=== PATIENT | male | born 1980 | race Caucasian/White ===

== ENCOUNTER 2017-01-26 11:30 | Outpatient (CLI) | payer OTHER | END 2017-01-26 12:00 | disposition home or self-care (01) | LOC: RAD 11:30 | PROVIDERS: ATTEND Nurse Practitioner | DX: G47.00 Insomnia, unspecified (principal) ==

== ENCOUNTER 2019-04-02 10:05 | Emergency (ER) | payer OTHER ==
[~2019-04-02] VITALS: Ht 180.3 cm; Wt 159.0 kg
--- NOTE | 2019-04-02 10:25 | ED Respiratory ---
General Stated Complaint: SOA Source: patient Exam Limitations: no limitations History of Present Illness Date Seen by Provider: Apr 02, 2019 Time Seen by Provider: 10:08 Initial Comments The patient reports to the ER from home by ambulance with his and chief complaint that he's having shortness of breath the past few weeks progressively worsening as well as increased swelling and edema in his abdomen and lower extremities. His also noticed today he has icterus which she has never had before. He has a history of hepatitis as well as he still chronically drinks about a fifth of liquor daily. He has a history of cirrhosis but no history of abdominal ascites necessitating drainage. He says he does not feel wheezy and has no history of COPD or asthma but does smoke cigarettes about a pack per day. Allergies and Home Medications Allergies Coded Allergies: No Known Drug Allergies (Unverified , 04/02/19) Patient Home Medication List Home Medication List Reviewed: Yes Review of Systems Review of Systems Constitutional: No chills, No diaphoresis EENTM: No ear discharge, No ear pain Respiratory: No cough, No hemoptysis; orthopnea, short of breath; No stridor, No wheezing Cardiovascular: No chest pain, No Hx of Intervention, No palpitations Gastrointestinal: No abdominal pain, No constipation, No diarrhea, No nausea Genitourinary: No discharge, No dysuria Musculoskeletal: No back pain, No joint pain All Other Systems Reviewed Negative Unless Noted: Yes Past Cnvtzba-Acsxvh-Ssdete Hx Patient Social History Alcohol Use: Regular Use Alcohol Beverage of Choice: Cheap Liquor (1/5 per day) Recreational Drug Use: No Smoking Status: Current Everyday Smoker Type Used: Cigarettes Physical Exam Vital Signs - First Documented 04/02/19 04/02/19 10:08 11:10 Temp 36.2 Pulse 112 Resp 20 B/P (MAP) 170/93 (118) O2 Delivery Nasal Cannula O2 Flow Rate 2.00 Capillary Refill : Height: '" Weight: lbs. oz. kg; BMI Method: General Appearance: moderate distress, obese Eyes: Bilateral Eye Normal Inspection, Bilateral Eye PERRL, Bilateral Eye EOMI HEENT: PERRL/EOMI, normal ENT inspection, TMs normal, pharynx normal Neck: full range of motion, supple, normal inspection Respiratory: lungs clear, respiratory distress (mild to moderate 30-35 respirations per minute), decreased breath sounds, accessory muscle use (mild to moderate) Cardiovascular: normal peripheral pulses, regular rate, rhythm, tachycardia (115) Gastrointestinal: normal bowel sounds, non tender, distended (edematous, tense); No tenderness Neurologic/Psychiatric: alert, normal mood/affect, oriented x 3 Skin: normal color, warm/dry Focused Exam Lactate Level 04/02/19 10:22: Lactic Acid Level 8.02*H 04/02/19 13:00: Lactic Acid Level 6.71*H Lactic Acid Level Laboratory Tests Test 04/02/19 10:22 04/02/19 13:00 Lactic Acid Level 8.02 MMOL/L (0.50-2.00) *H 6.71 MMOL/L (0.50-2.00) *H Progress/Results/Core Measures Suspected Sepsis SIRS Temperature: Pulse: Respiratory Rate: Laboratory Tests 04/02/19 10:20: White Blood Count 7.3 Blood Pressure / Mean: 04/02/19 10:22: Lactic Acid Level 8.02*H 04/02/19 13:00: Lactic Acid Level 6.71*H Laboratory Tests 04/02/19 10:20: Creatinine 2.13H, Platelet Count 98L, Total Bilirubin 9.7H 04/02/19 11:03: INR Comment 1.2 Results/Orders Lab Results Laboratory Tests Test 04/02/19 10:20 04/02/19 10:22 04/02/19 10:26 04/02/19 11:03 Range/Units White Blood Count 7.3 4.3-11.0 10^3/uL Red Blood Count 4.28 L 4.35-5.85 10^6/uL Hemoglobin 11.9 L 13.3-17.7 G/DL Hematocrit 38 L 40-54 % Mean Corpuscular Volume 88 80-99 FL Mean Corpuscular Hemoglobin 28 25-34 PG Mean Corpuscular Hemoglobin Concent 32 32-36 G/DL Red Cell Distribution Width 20.2 H 10.0-14.5 % Platelet Count 98 L 130-400 10^3/uL Mean Platelet Volume 10.7 H 7.4-10.4 FL Neutrophils (%) (Auto) 77 H 42-75 % Lymphocytes (%) (Auto) 13 12-44 % Monocytes (%) (Auto) 9 0-12 % Eosinophils (%) (Auto) 1 0-10 % Basophils (%) (Auto) 0 0-10 % Neutrophils # (Auto) 5.6 1.8-7.8 X 10^3 Lymphocytes # (Auto) 1.0 1.0-4.0 X 10^3 Monocytes # (Auto) 0.7 0.0-1.0 X 10^3 Eosinophils # (Auto) 0.0 0.0-0.3 10^3/uL Basophils # (Auto) 0.0 0.0-0.1 10^3/uL Sodium Level 128 L 135-145 MMOL/L Potassium Level 3.1 L 3.6-5.0 MMOL/L Chloride Level 81 L 98-107 MMOL/L Carbon Dioxide Level 21 21-32 MMOL/L Anion Gap 26 H 5-14 MMOL/L Blood Urea Nitrogen 16 7-18 MG/DL Creatinine 2.13 H 0.60-1.30 MG/DL Estimat Glomerular Filtration Rate 35 BUN/Creatinine Ratio 8 Glucose Level 94 70-105 MG/DL Calcium Level 6.6 L 8.5-10.1 MG/DL Corrected Calcium 7.5 L 8.5-10.1 MG/DL Magnesium Level 0.7 *L 1.6-2.4 MG/DL Total Bilirubin 9.7 H 0.1-1.0 MG/DL Aspartate Amino Transf (AST/SGOT) 152 H 5-34 U/L Alanine Aminotransferase (ALT/SGPT) 122 H 0-55 U/L Alkaline Phosphatase 677 H 40-136 U/L Troponin I 0.066 H <0.028 NG/ML B-Type Natriuretic Peptide 136.3 H <100.0 PG/ML Total Protein 6.1 L 6.4-8.2 GM/DL Albumin 2.9 L 3.2-4.5 GM/DL Lactic Acid Level 8.02 *H 0.50-2.00 MMOL/L Blood Gas Puncture Site L RADIAL Blood Gas Patient Temperature 36.6 Arterial Blood pH 7.49 H 7.37-7.43 Arterial Blood Partial Pressure CO2 32 L 35-45 MMHG Arterial Blood Partial Pressure O2 110 H 79-93 MMHG Arterial Blood HCO3 24 23-27 MMOL/L Arterial Blood Total CO2 25.2 21.0-31.0 MMOL/L Arterial Blood Oxygen Saturation 98 94-100 % Arterial Blood Base Excess 0.9 -2.5-2.5 MMOL/L Christian Test YES-POS Blood Gas Ventilator Setting NO Blood Gas Inspired Oxygen 1.5 Prothrombin Time 16.1 H 12.2-14.7 SEC INR Comment 1.2 0.8-1.4 Activated Partial Thromboplast Time 35 24-35 SEC D-Dimer 3.24 H 0.00-0.49 UG/ML Test 04/02/19 13:00 Range/Units Lactic Acid Level 6.71 *H 0.50-2.00 MMOL/L Micro Results Microbiology 04/02/19 Influenza Types A,B Antigen (EDGAR) - Final, Complete My Orders Orders - CHIP AL Cbc With Automated Diff (04/02/19 10:17) Comprehensive Metabolic Panel (04/02/19 10:17) Blood Culture (04/02/19 10:17) Sputum Culture (04/02/19 10:17) Urinalysis (04/02/19 10:17) Urine Culture (04/02/19 10:17) Protime With Inr (04/02/19 10:17) Partial Thromboplastin Time (04/02/19 10:17) Chest 1 View, Ap/Pa Only (04/02/19 10:17) Ed Iv/Invasive Line Start (04/02/19 10:17) Ed Iv/Invasive Line Start (04/02/19 10:17) Ekg Tracing (04/02/19 10:17) Troponin I (04/02/19 10:17) Vital Signs Adult Sepsis Patie Q15M (04/02/19 10:17) O2 (04/02/19 10:17) Remove Rings In Anticipation O (04/02/19 10:17) Lactic Acid Analyzer (04/02/19 10:17) Influenza A And B Antigens (04/02/19 10:17) Magnesium (04/02/19 10:17) Bipap (Bilevel) Set Up (04/02/19 10:17) BNP (04/02/19 10:25) Fibrin Degradation Products (04/02/19 10:25) Arterial Blood Gas (04/02/19 10:28) Lorazepam Injection (Ativan Injection) (04/02/19 11:00) Arterial Blood Draw (04/02/19 ) Magnesium 1 Gm/100 Ml Ivpb (Magnesium Sam (04/02/19 11:45) Potassium Cl 10meq/50ml Ivpb (Kcl 10 Meq (04/02/19 11:45) Aspirin Chewable Tablet (Baby Aspirin Ch (04/02/19 11:45) Pantoprazole Injection (Protonix Injecti (04/02/19 13:15) Enoxaparin Injection (Lovenox Injection) (04/02/19 14:00) Medications Given in ED Current Medications Medications Dose Ordered Sig/Jesica Route Start Time Stop Time Status Last Admin Dose Admin Aspirin 324 mg ONCE ONCE PO 04/02/19 11:45 04/02/19 11:46 DC 04/02/19 12:05 324 MG Lorazepam 0.25 mg ONCE ONCE IVP 04/02/19 11:00 04/02/19 11:01 DC 04/02/19 10:54 0.25 MG Pantoprazole 40 mg ONCE ONCE IV 04/02/19 13:15 04/02/19 13:16 DC 04/02/19 13:23 40 MG Potassium Chloride 50 ml @ 50 mls/hr ONCE ONCE IV 04/02/19 11:45 04/02/19 12:44 DC 04/02/19 12:10 50 MLS/HR Vital Signs/I&O 04/02/19 04/02/19 10:08 11:10 Temp 36.2 Pulse 112 Resp 20 B/P (MAP) 170/93 (118) O2 Delivery Nasal Cannula O2 Flow Rate 2.00 Capillary Refill : Progress Note : Time: 10:24 Progress Note Suspect he's and hepatorenal syndrome fluid overload. Some labs and if appropriate give him a dose of Lasix. Chest x-ray ABG. ECG Initial ECG Impression Date: Apr 02, 2019 Initial ECG Impression Time: 10:31 Initial ECG Rate: 111 Initial ECG Rhythm: S.Tach Initial ECG Intervals: QT (500) Initial ECG Impression: Normal, Nonspecific Changes Comment Sinus tachycardia with prolonged QT interval and some respiratory artifact but no ST elevation or depression appreciable. Diagnostic Imaging Diagonstic Imaging: Xray Plain Films/CT/US/NM/MRI: chest (1v) Comments [facility]. [place], [place] NAME: DIOGO MTZ MED REC#: [id number] PT STATUS: REG ER : 1980 PHYSICIAN: CHIP AL MD ADMIT DATE: 04/02/19/ER Draft Date of Exam:04/02/19 CHEST 1 VIEW, AP/PA ONLY HISTORY: Swollen leg and abdomen for 2 weeks. Increased shortness of air. COMPARISON: None. TECHNIQUE: Single frontal view of the chest. FINDINGS: The lung volumes are normal. No focal consolidation is seen. There is no pleural effusion or pneumothorax. Tubing overlies the chest. There is an old healed/healing left rib fracture. IMPRESSION: No acute pulmonary abnormality is seen. Dictated on workstation # [id number] Dict: 04/02/19 1216 Trans: 04/02/19 1218 [id number] Interpreted by: VERONICA BEAVER MD Electronically signed by: Reviewed: Reviewed by Me Departure Impression Primary Impression: Acute respiratory failure Qualified Codes: J96.00 - Acute respiratory failure, unspecified whether with hypoxia or hypercapnia Additional Impressions: Acute liver failure Qualified Codes: K72.00 - Acute and subacute hepatic failure without coma Alcohol dependence Qualified Codes: F10.29 - Alcohol dependence with unspecified alcohol- induced disorder Disposition: SHT-TRM HOSP Condition: Stable Transfer Transfer Reason: Exceeds level of care Time Spoke to Accepting Phy: 14:00 Transfer Progress Notes Discussed case with Dr. Briones and he accepts the patient to the ICU at [facility]. He agrees with a single dose of Lovenox. Transfer Facility: [place], [place] Method of Transfer: EMS Departure-Patient Inst. Referrals: CLARA JARQUIN MD (PCP/Family) Primary Care Physician CHIP AL Apr 02, 2019 10:25
[2019-04-02 10:34] LABS: ABG BASE EXCESS 0.9 MMOL/L (-2.5-2.5); ABG OXYGEN SATURATION 98 % (94-100); ABG PCO2 32 MMHG (35-45); ABG PH 7.49 (7.37-7.43); ABG PO2 110 MMHG (79-93); ABG TCO2 25.2 MMOL/L (21.0-31.0)
[2019-04-02 10:36] LABS: ALLENS TEST YES-POS; INSPIRED O2 1.5; PATIENT TEMP 36.6; VENTILATOR NO
[2019-04-02 10:46] LABS: BASOPHILS % (AUTO) 0 % (0-10); EOSINOPHILS % (AUTO) 1 % (0-10); HEMATOCRIT 38 % (40-54); HEMOGLOBIN 11.9 G/DL (13.3-17.7); LYMPHOCYTES % (AUTO) 13 % (12-44); MEAN CORPUSCULAR HEMOGLOBIN 28 PG (25-34); MEAN CORPUSCULAR HGB CONC 32 G/DL (32-36); MEAN CORPUSCULAR VOLUME 88 FL (80-99); MEAN PLATELET VOLUME 10.7 FL (7.4-10.4); MONOCYTES # (AUTO) 0.7 X 10^3 (0.0-1.0); MONOCYTES % (AUTO) 9 % (0-12); NEUTROPHILS # (AUTO) 5.6 X 10^3 (1.8-7.8); NEUTROPHILS % (AUTO) 77 % (42-75); PLATELET COUNT 98 10^3/uL (130-400); RED CELL DISTRIBUTION WIDTH 20.2 % (10.0-14.5); WHITE BLOOD COUNT 7.3 10^3/uL (4.3-11.0)
--- NOTE | 2019-04-02 10:46 | NUR ---
PATIENT UNABLE TO TOLERATED BI PAP PLACED ON VIPROTHERM BY RT.
[2019-04-02] MEDS ORDERED: LORazepam INJ 2 MG/ML (ATIVAN) VIAL IVP ONE ×2 (11:00→14:15)
[2019-04-02 11:11] LABS: ALBUMIN 2.9 GM/DL (3.2-4.5); BILIRUBIN,TOTAL 9.7 MG/DL (0.1-1.0); CALCIUM 6.6 MG/DL (8.5-10.1); CREATININE SERUM 2.13 MG/DL (0.60-1.30); POTASSIUM 3.1 MMOL/L (3.6-5.0); TOTAL PROTEIN 6.1 GM/DL (6.4-8.2)
[2019-04-02] MEDS ORDERED: PANT40TA3 (11:13)
[2019-04-02] MEDS ORDERED: CLON0.1T (11:13)
[2019-04-02] MEDS ORDERED: CITA20TA9 (11:13)
[2019-04-02 11:27] LABS: MAGNESIUM 0.7 MG/DL (1.6-2.4)
[2019-04-02 11:33] LABS: FIBRIN DEGRADATION PRODUCTS 3.24 UG/ML (0.00-0.49); INR 1.2 (0.8-1.4); PROTHROMBIN TIME PATIENT 16.1 SEC (12.2-14.7)
[2019-04-02] MEDS ORDERED: POTASSIUM CL 10MEQ/50ML IVPB 50 ML IV ONE (11:45)
[2019-04-02] MEDS ORDERED: ASPIRIN 81 MG CHEW (CHILDREN'S ASA) PO ONE (11:45)
[2019-04-02] MEDS ORDERED: MAGNESIUM 1 GM/100 ML IVPB 100 ML IV SCH (11:45)
--- NOTE | 2019-04-02 12:19 | Diagnostic Imaging Report ---
HISTORY: Swollen leg and abdomen for 2 weeks. Increased shortness of air. COMPARISON: None. TECHNIQUE: Single frontal view of the chest. FINDINGS: The lung volumes are normal. No focal consolidation is seen. There is no pleural effusion or pneumothorax. Tubing overlies the chest. There is an old healed/healing left rib fracture. IMPRESSION: No acute pulmonary abnormality is seen. Dictated by: Dictated on workstation # [id number]
[2019-04-02] MEDS ORDERED: PANTOPRAZOLE 40 MG (PROTONIX) VIAL IV ONE (13:15)
--- NOTE | 2019-04-02 13:28 | NUR ---
PATIENT WANTED OFF VAPORTHERM OK WITH DR AL REMOVED VAPORTHERM RT XANDER NOTIFIED.
--- NOTE | 2019-04-02 13:49 | NUR ---
INFORMED THAT TALKING WITH SADE ABOUT TRANSFER.
[2019-04-02] MEDS ORDERED: ENOXAPARIN 80 MG/0.8 ML (LOVENOX) SYR SC ONE (14:00)
[2019-04-02] MEDS ORDERED: NS W/KCL 40 MEQ/L 1,000 ML IV SCH (14:15)
--- NOTE | 2019-04-02 14:25 | NUR ---
EMS CALLED FOR TRANSFR.
--- NOTE | 2019-04-02 14:57 | NUR ---
EMS HERE FOR TRANSFER
[2019-04-02 15:02] VITALS: BP 161/85
== END 2019-04-02 15:09 | disposition short-term general hospital (02) ==
LOC: EDUNIT# 10:05 → ER 10:05
DX: J96.00 Acute respiratory failure, unspecified whether with hypoxia or hypercapnia (principal); K72.00 Acute and subacute hepatic failure without coma; F10.20 Alcohol dependence, uncomplicated; F17.210 Nicotine dependence, cigarettes, uncomplicated
CPT/HCPCS: 36415; 36600; 71045; 80053; 82805; 83605; 83735; 83880; 84484; 85025; 85379; 85610; 85730; 87040; 87804; 93005